=== PATIENT | male | born 1960 | race Caucasian/White ===

== ENCOUNTER → 2019-06-01 12:19 | Outpatient (CLI) | payer BC, SELFPAY ==
--- NOTE | 2019-06-01 12:45 | US_ITS ---
PROCEDURE: US ABDOMEN COMPLETE CLINICAL INDICATION: adb pain Upper abdominal pain COMPARISON: No exams were available for comparison FINDINGS: PANCREAS: Unremarkable. No obvious mass or abnormal fluid collection. No ductal dilatation LIVER: No focal liver lesions demonstrated. Homogeneous echogenicity. No intrahepatic biliary ductal dilatation evident. There is appropriate direction of blood flow within a non dilated portal vein RIGHT KIDNEY: Unremarkable. Normal size and echogenicity. No hydronephrosis LEFT KIDNEY: Unremarkable. Normal size and echogenicity. No hydronephrosis GALLBLADDER: No gallstones apparent. There is a small amount of gallbladder sludge with mild wall thickening at 3-4 mm without pericholecystic fluid or biliary distention. Common bile duct is normal at 2 mm. AORTA: No evidence of aneurysmal dilatation. SPLEEN: Unremarkable. Normal size and echogenicity ASCITES: None demonstrated. IMPRESSION: Gallbladder sludge with mild gallbladder wall thickening otherwise negative abdominal ultrasound Dictated by: Bebeto Long MD 06/01/2019 16:44 Electronically signed by Bebeto Long MD in [place] 06/01/2019 16:44
[2019-06-01 13:41] LABS: Basophils % 0.2 % (0.1-2.0); Eosinophils % 0.3 % (0.1-12.0); Hematocrit 48.1 % (42.0-52.0); Hemoglobin 15.1 g/dL (14.1-18.0); Lymphocytes # 0.9 K/mm3 (0.7-4.5); Lymphocytes % 8.6 % (10-50); Mean Corpuscular HGB Conc 31.4 g/dL (31.8-35.4); Mean Corpuscular Hemoglobin 29.8 pg (27.0-31.2); Mean Platelet Volume 7.9 fl (7.4-10.4); Monocytes # 0.6 K/mm3 (0.1-1.0); Monocytes % 5.5 % (1.7-9.3); Neutrophils # 8.9 K/mm3 (1.8-7.8); Neutrophils % 85.5 % (37.0-80.0); Platelet Count 271 K/mm3 (142-424); Red Blood Count 5.07 M/mm3 (4.60-6.20); Red Cell Distribution Width 13.1 % (11.5-17.5); White Blood Count 10.4 K/mm3 (4.8-10.8)
[2019-06-01 13:51] LABS: MANUAL DIFFERENTIAL MANUAL DIFFERENTIAL (MANUAL DIFF)
[2019-06-01 16:46] LABS: Lymphocytes % 7 % (10-50); Monocytes % 5 % (2-9); Neutrophils % 88 % (42-76); Platelet Estimate Normal; RBC Morphology Normal; Total Cells Counted 100
[2019-06-01 20:59] LABS: Alanine Aminotransferase 31 U/L (12-78); Alkaline Phosphatase 97 U/L (46-116); Amylase 42 U/L (25-115); Anion Gap 17.2 mEq/L (5-15); Aspartate Amino Transferase 16 U/L (15-37); Bilirubin,Direct 0.3 mg/dL (0.0-0.2); Bilirubin,Indirect 1.7 mg/dL (0.0-0.9); Blood Urea Nitrogen 29 mg/dL (7-18); Carbon Dioxide 26 mmol/L (21.0-32.0); Chloride 103 mmol/L (98-107); Creatinine,Serum 1.19 mg/dL (0.70-1.30); Estimated Glomerular Filt Rate 62 ml/min (>60); GFR (African American) 75 ML/MIN (>60); Glucose 88 mg/dL (74-106); Lipase 74 u/L (73-393); Potassium 4.2 mmoL/L (3.5-5.1); Sodium 142 mmol/L (136-145); Thyroid Stimulating Hormone 0.86 uIU/ml (0.358-3.740); Total Protein,Serum 7.2 gm/dL (6.4-8.2)
== END ==
PROVIDERS: Visit Provider Internal Medicine
DX: K29.60 Other gastritis without bleeding (principal); R06.02 Shortness of breath; R10.9 Unspecified abdominal pain; T39.395A Adverse effect of other nonsteroidal anti-inflammatory drugs [NSAID], initial encounter
CPT/HCPCS: 36415; 76700; 80048; 80076; 82150; 83690; 84439; 84443; 85007; 85025; 86677

== ENCOUNTER 2024-02-05 12:18 | Outpatient (CLI) | payer MEDICARE, SELFPAY ==
[2024-02-05 13:14] LABS: Eosinophils # 0.1 K/mm3 (0.0-0.4); Eosinophils % 1.5 % (0.1-12.0); Hematocrit 44.3 % (42.0-52.0); Hemoglobin 14.1 g/dL (14.1-18.0); Lymphocytes # 1.1 K/mm3 (0.7-4.5); Lymphocytes % 25.2 % (10-50); Mean Corpuscular HGB Conc 31.8 g/dL (31.8-35.4); Mean Corpuscular Volume 97.4 fl (80-94); Mean Platelet Volume 8.2 fl (7.4-10.4); Monocytes # 0.3 K/mm3 (0.1-1.0); Monocytes % 6.4 % (1.7-9.3); Neutrophils # 2.8 K/mm3 (1.8-7.8); Platelet Count 241 K/mm3 (142-424); Red Blood Count 4.55 M/mm3 (4.60-6.20); White Blood Count 4.2 K/mm3 (4.8-10.8)
[2024-02-05 13:28] LABS: Albumin Level 3.9 g/dl (3.5-5.0); Chloride 108 mmol/L (98-107); Potassium 4.2 mmoL/L (3.5-5.1); Sodium 141 mmol/L (136-145)
[2024-02-05 13:30] LABS: Bilirubin,Unconjugated 0.8 mg/dL (0.0-1.1); Blood Urea Nitrogen 36 mg/dl (9-20); Estimated Glomerular Filt Rate 61 ml/min (>60); GFR (African American) 74 ML/MIN (>60)
[2024-02-05 13:31] LABS: Alanine Aminotransferase 49 U/L (12-78); Alkaline Phosphatase 81 U/L (38-126); Anion Gap 9.2 mEq/L (5-15); Aspartate Amino Transferase 41 U/L (17-59); Bilirubin,Direct 0.2 mg/dl (0.0-0.4); Bilirubin,Indirect 0.9 mg/dL (0.0-0.9); Bilirubin,Total 1.1 mg/dl (0.2-1.3); Calcium 9.2 mg/dl (8.4-10.2); Carbon Dioxide 28 mmol/L (22.0-30.0); Cholesterol 129 mg/dl (140-200); Glucose 90 mg/dl (74-100); Magnesium 2.1 mg/dl (1.6-2.3); Total Protein,Serum 6.4 g/dl (6.3-8.2); Triglycerides 55 mg/dl (30-150); VLDL Cholesterol 11 mg/dL (0-40)
[2024-02-05 13:32] LABS: Chol/HDL Ratio 3.1 (1-3.5); HDL Cholesterol 42 mg/dl (40-60)
[2024-02-05 13:43] LABS: Direct LDL Cholesterol 65.42 mg/dL (100-129)
[2024-02-05 13:48] LABS: Free T4 (Free Thyroxine) 0.88 ng/dl (0.78-2.19)
[2024-02-05 13:52] LABS: Hemoglobin A1C 5.5 % (4.0-6.0)
[2024-02-05 14:02] LABS: Thyroid Stimulating Hormone 1.02 uIU/mL (0.465-4.68)
[2024-02-05 15:18] LABS: Prostate Specific Ag Screen 0.7 ng/ml (0.0-4.0)
[2024-02-05 15:53] LABS: Vitamin B12 779 pg/mL (239-931)
[2024-02-05 15:57] LABS: Folate > 20.00 ng/mL
[2024-02-15 19:12] LABS: 1,25 Dihydroxy Vitamin D 55 pg/mL (.); 1,25-Dihydroxy, Vitamin D-2 <10 pg/mL (.); 1,25-Dihydroxy, Vitamin D-3 55 pg/mL (.)
== END 2024-02-05 23:59 | disposition home or self-care (01) ==
LOC: LAB 12:19
PROVIDERS: Visit Provider Internal Medicine
DX: R94.31 Abnormal electrocardiogram [ECG] [EKG] (principal); I10 Essential (primary) hypertension; E78.2 Mixed hyperlipidemia; E66.09 Other obesity due to excess calories; I20.89 Other forms of angina pectoris; R06.00 Dyspnea, unspecified; K21.9 Gastro-esophageal reflux disease without esophagitis; Z12.5 Encounter for screening for malignant neoplasm of prostate; Z68.31 Body mass index [BMI] 31.0-31.9, adult
CPT/HCPCS: 80048; 80061; 80076; 82607; 82652; 82746; 83036; 83735; 84439; 84443; 85025; G0103

== ENCOUNTER 2024-02-12 08:41 | Outpatient (CLI) | payer MEDICARE, SELFPAY ==
[2024-02-12 09:17] VITALS: BP 135/78; PULSE 58; RESP 16; O2SAT 99
[2024-02-12 09:30] VITALS: BP 146/88; PULSE 65; RESP 16; O2SAT 98
[2024-02-12] MEDS: NITROGLYCERIN 0.4MG SL TABLET 0.8 MG SL (09:30)
[2024-02-12 09:33] VITALS: BP 118/69; PULSE 54; RESP 16; O2SAT 97
[2024-02-12 09:36] VITALS: BP 106/65; PULSE 62; RESP 18; O2SAT 98
[2024-02-12] MEDS: METOPROLOL TARTRATE 5MG/5ML VIAL *IVABRADINE+METOPROLOL REGIMINE 5 MG IV (09:36)
[2024-02-12 09:46] VITALS: BP 104/65; PULSE 56; RESP 18; O2SAT 96
[2024-02-12] MEDS: 0.9 % SODIUM CHLORIDE 50 ML VIAL IV (09:57)
[2024-02-12] MEDS: SODIUM CHLORIDE 0.9% 10ML SYR (RAD ONLY) 10 ML IV (09:57)
[2024-02-12] MEDS: IOPAMIDOL-370 (76%);100ML BOTTLE 85 ML IV (09:58)
== END 2024-02-12 09:50 | disposition home or self-care (01) ==
PROVIDERS: PCP Internal Medicine; Visit Provider Internal Medicine
DX: I20.89 Other forms of angina pectoris (principal); R06.00 Dyspnea, unspecified; Z82.49 Family history of ischemic heart disease and other diseases of the circulatory system
CPT/HCPCS: 75574; Q9967

== ENCOUNTER 2024-03-02 11:25 | Outpatient (CLI) | payer MEDICARE, SELFPAY ==
--- NOTE | 2024-03-02 | CA_ITS ---
APPROVED REPORT Exam: Exercise Treadmill Technologist: Alina Hernandez Ht: 5 ft 7 in Wt: 204 lbs BSA: 2.04 m2 HR: 57 bpm BP: 140/87 mmHg Indications: Shortness of Breath Medical History Medications: Omeprazole,,,,, Aspirin,,,,, Atorvastatin,,,,, Naproxen,,,,, Centrum Silver,,,,, Lisinopril HCTZ,,,,, TAdalafil,,,,, Stress Test Details Test: Esvin HR Resting HR: 56 bpm Max Heart Rate (APMHR): 155 bpm Max HR Achieved: 147 bpm Target HR (85% APMHR): 132 bpm % of APMHR: 95 Recovery HR: 83 bpm HR response to stress: Normal HR response to stress BP Resting BP: 140.0/87.0 mmHg Max BP: 173.0/85.0 mmHg Recovery BP: 131.0/80.0 mmHg BP response to stress: Normal blood pressure response to stress. ECG Resting ECG: Sinus bradycardia, PRWP anteriorly, NSSTTW abnormalities inferiorly. Stress EC mm upsloping ST depression Arrhythmia: None Clinical Exercise duration: 09:31 min Highest Stage Achieved: Exercise capacity: 10.1 METs Overall Exercise Capacity for Age: Average Stress ECG Conclusion Patient walked 9:31 on Esvin Protocol. Test stopped due to dyspnea. Symptoms: No chest pain Arrhythmias/Ectopy: None ST-T Changes: [address] depression Conclusion: Average exercise capacity. Non-diagnostic stress due to baseline EKG abnormalities. No chest pain. Myoview images reported separately. Test Summary REST . . . . . . . Sitting REST . . . . . . . Standing REST 20:06 0.0 1.2 56 . 140/ 87 . . Stage 1 01:00 10.0 1.7 83 . . . . Stage 1 02:00 10.0 1.7 87 . . . . Stage 1 03:00 10.0 1.7 91 . 138/ 78 . . Stage 2 01:00 12.0 2.5 102 . . . . Stage 2 02:00 12.0 2.5 106 . . . . Stage 2 03:00 12.0 2.5 109 . 148/ 76 . . Stage 3 01:00 14.0 3.4 120 . . . . Stage 3 02:00 14.0 3.4 128 . . . . Stage 3 . . . . . . . Myoview Injected Stage 3 03:00 14.0 3.4 136 . 154/ 82 . . Stage 4 00:31 16.0 4.2 145 . . . Stop exercise at 09:31 RECOVERY 01:00 0.0 0.0 128 . 170/ 84 . . RECOVERY 02:00 0.0 0.0 108 . 170/ 84 . . RECOVERY 03:00 0.0 0.0 96 . 173/ 85 . . RECOVERY 04:00 0.0 0.0 89 . 173/ 85 . . RECOVERY 05:00 0.0 0.0 83 . 173/ 85 . . RECOVERY 05:46 0.0 0.0 82 . 131/ 80 . . Electronically signed by : Makenna Mcpherson MD 03/03/2024 11:42:56
--- NOTE | 2024-03-02 11:26 | NM_ITS ---
APPROVED REPORT Exam: Nuclear Stress Test Indication: Chest pain, SOB, HTN, High cholesterol, Family history Patient Location: Outpatient Stress Tech: Alina Hernandez [place] Tech:Mabel Alvarado, ARRT, RT (R)(N) Ht: 5 ft 7 in Wt: 199 lbs HR: 56 bpm BP: 140/87 mmHg BSA: 2.02 m2 TID: 0.79 BMI: 31.1 History: Chest pain, SOB, HTN, High cholesterol, Family history Procedure: Patient exercised on Esvin protocol 9:31 minutes and sec, resting heart rate 56 bpm, resting blood pressure 140/87 mmHg, with exercise maximum heart rate achived was 147 bpm which is 95 % of the maximum predicted heart rate and blood pressure was 173/85 mmHg. Test was stopped due to SOB. Patient denied any complaint of chest pain. Patient has average exercise capacity, achieved 10.1 METs of workload on treadmill, the blood pressure response to exercise was normal. Cardiac Stress and Resting SPECT Images: Cardiac Stress and Resting SPECT images were obtained using technetium 99m Myoview 31.2 mCi stress and 10.48 mCi at rest. Resting and stress imaging in supine and prone positions demonstrate a medium-sized, mild, reversible perfusion defect in the basal to mid inferior LV wall. Gated imaging demonstrates normal global and regional LV systolic function. LVEF is calculated at 63%. Conclusion: Medium-sized, mild, reversible perfusion defect in the basal to mid inferior LV wall. Findings are suggestive of reversible ischemia. Gated imaging demonstrates normal global and regional LV systolic function. LVEF is calculated at 63%. Electronically signed by : Makenna Mcpherson MD 03/03/2024 11:47:01
[2024-03-02] MEDS: ISOTOPE MYOVIEW (PER STUDY) 1 DOSE IV (13:15)
[2024-03-02] MEDS: SODIUM CHLORIDE 0.9% 10ML SYR (RAD ONLY) 10 ML IV ×2 (13:15)
== END 2024-03-02 23:59 | disposition home or self-care (01) ==
LOC: RAD 11:25
PROVIDERS: PCP Internal Medicine; Visit Provider Nurse Practitioner Family
DX: R06.00 Dyspnea, unspecified (principal)
CPT/HCPCS: 78452; 93017; 93018; A9502

== ENCOUNTER 2024-03-30 10:17 | Day surgery (SDC) | payer MEDICARE, SELFPAY ==
[2024-03-30] VITALS (12 sets, daily range): BP systolic 129–179; BP diastolic 79–103; PULSE 55–80; RESP 18–20; O2SAT 96–100; BMI 32.1
--- NOTE | 2024-03-30 07:05 | IR_ITS ---
APPROVED REPORT Patient Location: Outpatient PROCEDURES Left heart catheterization Left ventriculogram Selective coronary angiogram Drug-eluting stent deployment to the ostial proximal posterior descending artery off the dominant right coronary Drug-eluting stent deployment to the mid LAD INDICATION Coronary artery disease, Abnormal Myoview, Angina pectoris Informed consent was obtained prior to the procedure. COMPLICATIONS none Estimated Blood Loss: less than 10ml TECHNIQUE One percent lidocaine used to anesthetize the right anterior aspect of the wrist. The right radial artery was accessed via the Seldinger technique. A 6 Italian sheath was placed in the right radial artery. 2.5 mg of Verapamil, 800 mcg of nitroglycerin, 1mg Lidocaine and 5000 U Heparin were given through the arterial sheath. The papa catheter was also used to perform left heart catheterization, left ventriculogram and selective coronary angiogram. At the end of the diagnostic angiogram therapeutic heparin was administered giving a therapeutic ACT and the guide catheter was placed in the right coronary artery followed by Choice PT extra-support wire placed distally into the posterior descending artery. A 2.75 x 12 mm Jairo frontier stent was deployed at 16 july reducing severe 90% stenosis to 0%. VALENTINA-3 flow was present before and after the procedure. At the end the procedure the apparatus was removed from the right coronary artery and the guide catheters placed in the left main artery followed by a choice floppy wire placed into the mid LAD. A 3.5 x 22 mm Berry frontier stent was deployed at 12 july reducing the stenosis to 0%. VALENTINA-3 flow was present before and after the procedure. After achieving excellent angiographic results the apparatus was removed the sheath was removed and hemostasis was achieved using TR banding patient was transferred to the postop putting in stable condition ANGIOGRAPHIC RESULTS The left main artery Normal The left anterior descending artery Has proximal 10 and 20% stenoses. There is a mid vessel concentric 70% stenosis followed by poststenotic dilatation. There is an additional 40% stenosis along a tortuous bend with an additional 30% stenosis along a tortuous bend. The LAD is large and wraps the apex The circumflex artery Is nondominant. Gives rise to a small to medium sized first obtuse marginal artery which has an ostial 40 to 50% stenosis. The vessel is 1.75 mm in diameter. A 2 mm second obtuse marginal artery has proximal 30% stenoses The right coronary artery Is a large dominant vessel and has proximal 30% stenoses along tortuous bends with an additional mid vessel 30% stenosis distally. A large posterior descending artery has an ostial proximal concentric 90% stenosis The OCHOA ventriculogram reveals Normal 65% The left ventricular end-diastolic pressure 10 mmHg IMPRESSION Severe two-vessel coronary disease as described above Successful stenting of the large posterior descending artery severe disease reduced to 0% with 1 drug-eluting stent Successful stenting of the mid LAD severe disease reduced to 0% with 1 drug-eluting stent Diffuse moderate disease as described above Normal ejection fraction Normal LVEDP PLAN 1. Effient 10 mg daily plus aspirin 81 mg daily 2. LDL less than 55 to achieve that high intensity statin 3. Avoidance of tobacco products 4. Risk factor modification 5. Cardiac rehabilitation Electronically signed by : Jorge L Pichardo MD 03/30/2024 13:29:49
[2024-03-30 11:04] LABS: Basophils # 0.1 K/mm3 (0-0.2); Eosinophils # 0.1 K/mm3 (0.0-0.4); Hematocrit 43.3 % (42.0-52.0); Lymphocytes # 1.5 K/mm3 (0.7-4.5); Lymphocytes % 24.3 % (10-50); Mean Corpuscular HGB Conc 34.6 g/dL (31.8-35.4); Mean Corpuscular Hemoglobin 31.7 pg (27.0-31.2); Mean Corpuscular Volume 91.5 fl (80-94); Mean Platelet Volume 7.3 fl (7.4-10.4); Monocytes # 0.5 K/mm3 (0.1-1.0); Monocytes % 8.7 % (1.7-9.3); Neutrophils % 65.1 % (37.0-80.0); Platelet Count 262 K/mm3 (142-424); Red Blood Count 4.73 M/mm3 (4.60-6.20); Red Cell Distribution Width 13.8 % (11.5-17.5); White Blood Count 6.1 K/mm3 (4.8-10.8)
[2024-03-30 11:05] LABS: Chloride 100 mmol/L (98-107); Sodium 136 mmol/L (136-145)
[2024-03-30 11:06] LABS: Potassium 3.4 mmoL/L (3.5-5.1)
[2024-03-30 11:08] LABS: Blood Urea Nitrogen 38 mg/dl (9-20); Creatinine Clearance Estimated 81 mL/min (50-200); Estimated Glomerular Filt Rate 61 ml/min (>60); GFR (African American) 74 ML/MIN (>60)
[2024-03-30 11:09] LABS: Anion Gap 6.4 mEq/L (5-15); Calcium 9.6 mg/dl (8.4-10.2); Carbon Dioxide 33 mmol/L (22.0-30.0); Glucose 88 mg/dl (74-100)
[2024-03-30] MEDS: LIDOCAINE 1% 10ML MDV 20 ML IJ (12:51)
[2024-03-30] MEDS: HEPARIN 1,000 UNITS/500ML NS (CATH LAB) 3000 UNIT IV (12:51)
[2024-03-30] MEDS: HEPARIN 1,000 UNITS/ML 10ML VIAL (CATH LAB) 10000 UNIT IV ×2 (12:51→13:09)
[2024-03-30] MEDS: 0.9 % SODIUM CHLORIDE 500 ML 25 ML IV (12:52)
[2024-03-30] MEDS: VERAPAMIL 2.5MG/ML 2ML VIAL 2.5 MG IV (12:52)
[2024-03-30] MEDS: NITROGLYCERIN 800MCG/8ML SYR (CATH LAB) 800 MCG IA (12:52)
[2024-03-30] MEDS: diphenhydrAMINE 50MG/ML VIAL 50 MG IV (12:53)
[2024-03-30] MEDS: FENTANYL 100MCG/2ML VIAL 50 MCG IV (13:04)
[2024-03-30] MEDS: MIDAZOLAM HCL 1MG/1ML 5ML VIAL 1 MG IV (13:04)
[2024-03-30] MEDS: PRASUGREL 10MG TAB 60 MG PO (13:23)
[2024-03-30] MEDS: NITROGLYCERIN SPRAY 0.4MG/SPRAY 4.9GM 0.4 MG TL (15:30)
[2024-03-30] MEDS: IOPAMIDOL-370 (76%);100ML BOTTLE 120 ML IV (15:44)
[2024-03-31 09:30] LABS: CATHL Activated Clotting Time 257 SEC (74-125)
== END 2024-03-30 16:25 | disposition home or self-care (01) ==
PROVIDERS: PCP Internal Medicine; Visit Provider Internal Medicine
DX: R93.1 Abnormal findings on diagnostic imaging of heart and coronary circulation (principal); Z79.899 Other long term (current) drug therapy; I25.118 Atherosclerotic heart disease of native coronary artery with other forms of angina pectoris; R06.02 Shortness of breath; Z82.49 Family history of ischemic heart disease and other diseases of the circulatory system; I10 Essential (primary) hypertension; E78.5 Hyperlipidemia, unspecified
CPT/HCPCS: 36415; 80048; 85025; 85347; 92928; 93458; 99152; 99153; C1725; C1769; C1874; C9600; J1200; J1644; J2250; J3010; Q9967

== ENCOUNTER 2024-04-01 12:34 | Outpatient (CLI) | payer MEDICARE, SELFPAY ==
[2024-04-01 12:58] LABS: Basophils # 0.1 K/mm3 (0-0.2); Basophils % 0.8 % (0.1-2.0); Eosinophils # 0.1 K/mm3 (0.0-0.4); Eosinophils % 1.7 % (0.1-12.0); Hematocrit 43.8 % (42.0-52.0); Hemoglobin 15.3 g/dL (14.1-18.0); Lymphocytes # 1.3 K/mm3 (0.7-4.5); Mean Corpuscular HGB Conc 34.9 g/dL (31.8-35.4); Mean Corpuscular Hemoglobin 32.6 pg (27.0-31.2); Mean Corpuscular Volume 93.6 fl (80-94); Mean Platelet Volume 7.3 fl (7.4-10.4); Monocytes # 0.5 K/mm3 (0.1-1.0); Monocytes % 7.6 % (1.7-9.3); Neutrophils # 4.5 K/mm3 (1.8-7.8); Neutrophils % 69.9 % (37.0-80.0); Platelet Count 240 K/mm3 (142-424); Red Blood Count 4.68 M/mm3 (4.60-6.20); Red Cell Distribution Width 13.9 % (11.5-17.5); White Blood Count 6.4 K/mm3 (4.8-10.8)
[2024-04-01 13:11] LABS: Chloride 104 mmol/L (98-107); Sodium 138 mmol/L (136-145)
[2024-04-01 13:14] LABS: Blood Urea Nitrogen 37 mg/dl (9-20); Calcium 9.6 mg/dl (8.4-10.2); Carbon Dioxide 28 mmol/L (22.0-30.0); Estimated Glomerular Filt Rate 67 ml/min (>60); GFR (African American) 81 ML/MIN (>60); Glucose 84 mg/dl (74-100)
== END 2024-04-01 23:59 | disposition home or self-care (01) ==
LOC: LAB 12:36
PROVIDERS: PCP Internal Medicine; Visit Provider Internal Medicine
DX: I25.10 Atherosclerotic heart disease of native coronary artery without angina pectoris (principal)
CPT/HCPCS: 36415; 80048; 85025

== ENCOUNTER 2024-06-10 12:39 | Outpatient (CLI) | payer MEDICARE, SELFPAY ==
[2024-06-10 13:29] LABS: Hematocrit 42.3 % (42.0-52.0); Hemoglobin 14.1 g/dL (14.1-18.0); Mean Corpuscular HGB Conc 33.3 g/dL (31.8-35.4); Mean Corpuscular Hemoglobin 30.3 pg (27.0-31.2); Mean Corpuscular Volume 90.8 fl (80-94); Red Blood Count 4.66 M/mm3 (4.60-6.20); White Blood Count 4.4 K/mm3 (4.8-10.8)
[2024-06-10 13:30] LABS: Basophils # 0.1 K/mm3 (0-0.2); Basophils % 1.1 % (0.1-2.0); Eosinophils # 0.1 K/mm3 (0.0-0.4); Eosinophils % 1.4 % (0.1-12.0); Lymphocytes % 23.6 % (10-50); Mean Platelet Volume 9.9 fl (7.4-10.4); Monocytes # 0.3 K/mm3 (0.1-1.0); Monocytes % 6.9 % (1.7-9.3); Neutrophils # 2.9 K/mm3 (1.8-7.8); Neutrophils % 66.8 % (37.0-80.0); Platelet Count 242 K/mm3 (142-424); Red Cell Distribution Width 12.5 % (11.5-17.5)
[2024-06-10 14:02] LABS: Alanine Aminotransferase 38 U/L (12-78); Alkaline Phosphatase 87 U/L (38-126); Anion Gap 10.1 mEq/L (5-15); Aspartate Amino Transferase 41 U/L (17-59); Bilirubin,Direct 0.2 mg/dl (0.0-0.4); Bilirubin,Indirect 1.1 mg/dL (0.0-0.9); Bilirubin,Total 1.3 mg/dl (0.2-1.3); Bilirubin,Unconjugated 1.1 mg/dL (0.0-1.1); Blood Urea Nitrogen 33 mg/dl (9-20); Calcium 9.4 mg/dl (8.4-10.2); Carbon Dioxide 30 mmol/L (22.0-30.0); Chloride 105 mmol/L (98-107); Cholesterol 127 mg/dl (140-200); Estimated Glomerular Filt Rate 67 ml/min (>60); GFR (African American) 81 ML/MIN (>60); Glucose 89 mg/dl (74-100); HDL Cholesterol 43 mg/dl (40-60); Potassium 4.1 mmoL/L (3.5-5.1); Sodium 141 mmol/L (136-145); Total Protein,Serum 6.3 g/dl (6.3-8.2); Triglycerides 51 mg/dl (30-150); VLDL Cholesterol 10 mg/dL (0-40)
[2024-06-10 14:12] LABS: Free T4 (Free Thyroxine) 1.06 ng/dl (0.78-2.19)
== END 2024-06-10 23:59 | disposition home or self-care (01) ==
LOC: LAB 12:40
PROVIDERS: Physician Assistant; Visit Provider Internal Medicine
DX: E78.2 Mixed hyperlipidemia (principal); I10 Essential (primary) hypertension; E66.09 Other obesity due to excess calories; Z68.30 Body mass index [BMI] 30.0-30.9, adult; R94.31 Abnormal electrocardiogram [ECG] [EKG]
CPT/HCPCS: 80048; 80061; 80076; 83735; 84439; 84443; 85025

== ENCOUNTER 2024-10-07 11:42 | Outpatient (CLI) | payer MEDICARE, SELFPAY ==
[2024-10-07 12:05] LABS: Basophils # 0.1 K/mm3 (0-0.2); Basophils % 1.6 % (0.1-2.0); Eosinophils # 0.1 K/mm3 (0.0-0.4); Eosinophils % 2.1 % (0.1-12.0); Hematocrit 44.1 % (42.0-52.0); Hemoglobin 14.5 g/dL (14.1-18.0); Lymphocytes % 26.8 % (10-50); Mean Corpuscular HGB Conc 32.9 g/dL (31.8-35.4); Mean Corpuscular Hemoglobin 30.3 pg (27.0-31.2); Mean Corpuscular Volume 92.1 fl (80-94); Mean Platelet Volume 9.2 fl (7.4-10.4); Monocytes # 0.4 K/mm3 (0.1-1.0); Monocytes % 9.7 % (1.7-9.3); Neutrophils # 2.3 K/mm3 (1.8-7.8); Neutrophils % 59.8 % (37.0-80.0); Nucleated Red Blood Cells # 0 10^3/uL; Nucleated Red Blood Cells % 0 %; Platelet Count 237 K/mm3 (142-424); Red Blood Count 4.79 M/mm3 (4.60-6.20); Red Cell Distribution Width 13.5 % (11.5-17.5); Red Cell Distribution Width-SD 46.1 fL; White Blood Count 3.8 K/mm3 (4.8-10.8)
[2024-10-07 12:32] LABS: Chloride 104 mmol/L (98-107); Potassium 3.9 mmoL/L (3.5-5.1); Sodium 140 mmol/L (136-145)
[2024-10-07 12:34] LABS: Alanine Aminotransferase 36 U/L (12-78); Anion Gap 9.9 mEq/L (5-15); Aspartate Amino Transferase 37 U/L (17-59); Bilirubin,Unconjugated 1.9 mg/dL (0.0-1.1); Blood Urea Nitrogen 30 mg/dl (9-20); Carbon Dioxide 30 mmol/L (22.0-30.0); Estimated Glomerular Filt Rate 67 ml/min (>60); GFR (African American) 81 ML/MIN (>60)
[2024-10-07 12:35] LABS: Alkaline Phosphatase 82 U/L (38-126); Bilirubin,Indirect 1.9 mg/dL (0.0-0.9); Bilirubin,Total 1.9 mg/dl (0.2-1.3); Calcium 9.1 mg/dl (8.4-10.2); Chol/HDL Ratio 2.1 (1-3.5); Cholesterol 109 mg/dl (140-200); Glucose 93 mg/dl (74-100); HDL Cholesterol 53 mg/dl (40-60); Total Protein,Serum 6.5 g/dl (6.3-8.2); Triglycerides 51 mg/dl (30-150); VLDL Cholesterol 10 mg/dL (0-40)
[2024-10-07 12:46] LABS: Direct LDL Cholesterol 45.11 mg/dL (100-129)
[2024-10-07 12:52] LABS: Free T4 (Free Thyroxine) 1.04 ng/dl (0.78-2.19)
[2024-10-07 13:05] LABS: Thyroid Stimulating Hormone 1.55 uIU/mL (0.465-4.68)
== END 2024-10-07 23:59 | disposition home or self-care (01) ==
LOC: LAB 13:59
PROVIDERS: Visit Provider Nurse Practitioner Family
DX: I25.10 Atherosclerotic heart disease of native coronary artery without angina pectoris (principal); I10 Essential (primary) hypertension; E78.2 Mixed hyperlipidemia; E66.09 Other obesity due to excess calories; Z68.30 Body mass index [BMI] 30.0-30.9, adult
CPT/HCPCS: 36415; 80048; 80061; 80076; 83735; 84439; 84443; 85025

== ENCOUNTER 2024-10-12 11:12 | Outpatient (CLI) | payer MEDICARE, SELFPAY ==
--- NOTE | 2024-10-12 11:15 | CT_ITS ---
FINAL REPORT TECHNIQUE: Pre-and postcontrast axial imaging of the abdomen and pelvis was obtained.This study was performed with techniques to keep radiation doses as low as reasonably achievable, (ALARA). Individualized dose reduction technique using automated exposure control or adjustment of mA and/or kV according to the patient's size were employed. CLINICAL HISTORY: ELEVATED LIVER ENZYMES FINDINGS: The lung bases are clear. Multiple hypodense liver lesions are present. There are more in the left lobe than in the right. These are somewhat difficult to characterize due to small size. Some are likely cysts. The gallbladder is absent. The spleen, adrenal glands, and pancreas are unremarkable. There is no hydronephrosis or solid renal mass. On precontrast imaging, no renal stones are identified. Abdominal GI tract is unremarkable. There is no lymphadenopathy or ascites. The appendix is not visualized. There are no secondary signs of appendicitis. There is no small bowel obstruction. There is a moderate amount of retained stool in the colon. There is diverticulosis with no evidence of diverticulitis. The prostate is enlarged. There is wall thickening of the urinary bladder favored to be related to chronic outlet obstruction. There is no lymphadenopathy or ascites. No acute osseous abnormalities identified. IMPRESSION: Multiple, small hypodense liver lesions. Some are difficult to characterize due to very small size. Some are likely cysts. Liver protocol MRI is recommended. Constipation. Enlarged prostate with findings related to chronic outlet obstruction. Reviewed, Interpreted and Dictated by Alice Quintanilla MD Transcribed by Queta Ramos Authenticated and [facility]
[2024-10-12] MEDS: IOPAMIDOL-370 (76%);100ML BOTTLE 75 ML IV (11:33)
[2024-10-12] MEDS: SODIUM CHLORIDE 0.9% 10ML SYR (RAD ONLY) 10 ML IV (11:33)
== END 2024-10-12 23:59 | disposition home or self-care (01) ==
LOC: RAD 11:13
PROVIDERS: PCP Internal Medicine; Visit Provider Nurse Practitioner Family
DX: R74.8 Abnormal levels of other serum enzymes (principal); R93.1 Abnormal findings on diagnostic imaging of heart and coronary circulation
CPT/HCPCS: 74178; Q9967

== ENCOUNTER 2024-10-21 06:44 | Outpatient (CLI) | payer MEDICARE, SELFPAY ==
--- NOTE | 2024-10-21 07:00 | MR_ITS ---
FINAL REPORT TECHNIQUE: Multiplanar and multisequence MR imaging was performed through the abdomen before and after contrast administration utilizing an MR enterography protocol. Multiplanar MR imaging of the abdomen was obtained with and without contrast. CLINICAL HISTORY: liver lesions. ABNORMAL CT SCAN COMPARISON: CT dated 10/12/2024 FINDINGS: Overall exam is somewhat degraded secondary to respiratory motion. On the T2 weighted images, there are well-circumscribed fluid signal intensity structures in the left lobe of the liver and adjacent to the andrew hepatis. Individual structures measure up to 1.7 cm in greatest dimension. On the pre and postinfusion images, there is no evidence of abnormal enhancement. The spleen, pancreas, adrenals, and kidneys are unremarkable. The gallbladder is surgically absent. IMPRESSION: Multiple well-circumscribed fluid signal intensity structures, particularly in the left lobe of the liver consistent with benign cysts Reviewed, Interpreted and Dictated by Caesar Cruz MD Transcribed by Maida Stewart Authenticated and . [facility]
[2024-10-21] MEDS: SODIUM CHLORIDE 0.9% 10ML SYR (RAD ONLY) 10 ML IV (07:42)
[2024-10-21] MEDS: SODIUM CHLORIDE 0.9% 50ML BAG 20 ML IV (07:42)
[2024-10-21] MEDS: GADOTERIDOL INJ 20ML SYRINGE 18 ML IV (07:42)
== END 2024-10-21 23:59 | disposition home or self-care (01) ==
LOC: RAD 06:45
PROVIDERS: PCP Internal Medicine; Visit Provider Nurse Practitioner Family
DX: K76.9 Liver disease, unspecified (principal); R74.8 Abnormal levels of other serum enzymes
CPT/HCPCS: 74183; A9576

== ENCOUNTER 2024-10-26 09:56 | Day surgery (SDC) | payer MEDICARE, SELFPAY ==
[2024-10-21 17:21] VITALS: BMI 31.0
[2024-10-26] MEDS: LACTATED RINGERS 1000ML 1,000 ML 50 ML IV (10:41)
[2024-10-26 10:43] VITALS: BP 109/66; PULSE 61; RESP 18; TEMP 36.6; O2SAT 98
--- NOTE | 2024-10-26 10:53 | P.PNANES_ITS ---
[facility] Disclaimer: The information contained in this section may have been updated after the patient was seen, as this information can be updated by other users. Medical History History of left heart catheterization Enlarged prostate Liver lesion Elevated liver enzymes Erectile dysfunction Coronary artery disease Abnormal findings on diagnostic imaging of heart and coronary circulation Family history of coronary artery disease in father Dyspnea Atypical angina Family history of colon cancer requiring screening colonoscopy Abnormal electrocardiogram [ECG] [EKG] Obesity HLD (hyperlipidemia) HTN (hypertension) Surgical History History of colonoscopy History of appendectomy Family History Brother Family history of myocardial infarction Mother Family history of COPD (chronic obstructive pulmonary disease) Other Family history of cancer in brother Family history of hyperlipidemia Family history of hypertension Social History Smoking Status: Never smoker alcohol intake: current substance use type: denies use current occupational status: employed and retired Travel in the last 8 weeks?: Inside the [facility] Anesthesia Checklist Patient Identification Patient Identification: Arm Band Structural Data Admitted From: Home Planned Operative Procedure/s: Colonoscopy Consent for Planned Operative Procedure(s) Verified: Yes Verified Documents: Surgical Consent and History and Physical NPO Status Verified Time NPO: 06:00 (finished prep) Additional verifications Anesthesia Reactions: No Hx Blood Transfusions: No Blood Transfusion Reaction: No Airway Assessment Mallampati Score:: Class II C-Spine Mobility Assessed: Yes TMJ Mobility Assessed: Yes Dentition: Good Dentition Neurological Assessment Level of Consciousness: Awake, Alert and Appropriate Anesthesia Plan Anesthesia Risk discussed: Yes Anesthesia Plan: Verified ASA Class: III Anesthesia Type: MAC
--- NOTE | 2024-10-26 11:16 | P.HP_ITS ---
History of Present Illness *Admission Date: 10/26/24 *Reason for visit:: Screening *History of present illness: Mr. Cormier is a 64-year-old gentleman who is here for screening colonoscopy. His last colonoscopy was just over 10 years ago. The examination is deemed medically necessary for screening/surveillance colonoscopy. The patient has been seen, interviewed and examined prior to the procedure by both myself and the anesthesia provider. [facility] Disclaimer: The information contained in this section may have been updated after the patient was seen, as this information can be updated by other users. Medical History (Updated 10/26/24 @ 11:25 by Todd Lewis II, MD) History of left heart catheterization Enlarged prostate Liver lesion Elevated liver enzymes Erectile dysfunction Coronary artery disease Abnormal findings on diagnostic imaging of heart and coronary circulation Family history of coronary artery disease in father Dyspnea Atypical angina Family history of colon cancer requiring screening colonoscopy Abnormal electrocardiogram [ECG] [EKG] Obesity HLD (hyperlipidemia) HTN (hypertension) Surgical History History of colonoscopy History of appendectomy Family History Brother Family history of myocardial infarction Mother Family history of COPD (chronic obstructive pulmonary disease) Other Family history of cancer in brother Family history of hyperlipidemia Family history of hypertension Social History (Updated 10/26/24 @ 10:54 by Laith Wood CRNA) Smoking Status: Never smoker alcohol intake: current substance use type: denies use current occupational status: employed and retired Travel in the last 8 weeks?: Inside the [place] Have you lived/traveled outside US in past 30 days?: No Contact w/someone who lives/traveled outside US past 30 days?: No Exposure to someone with infectious disease in past 14 days?: No Do you have a fever (greater than 100.4 F or 38 C)?: No Have you tested positive for COVID-19?: No Exposed to someone with COVID-19 in past 14 days?: No Do you have a sore throat?: No Do you have a cough?: No Do you have any weakness?: No Do you have any diarrhea?: No Are you experiencing any unusual bleeding?: No Do you have any muscle aches/pain?: No Do you have any abdominal pain?: No Are you experiencing loss of taste or smell?: No Other Medical History Have you received the Flu Vaccine for this season: No Have you received the Pneumonia Vaccine: No Review of Systems Review of Systems Review of systems (narrative): Negative *Cardiovascular Comments: Negative *Gastrointestinal Comments: Negative *Genitourinary Comments: Negative *Musculoskeletal Comments: Negative *Neurologic Comments: Negative Meds Home Medications and Allergies Home Medications ?Medication ?Instructions ?Recorded ?Confirmed ?Type aspirin 81 mg tablet,delayed 81 mg PO DAILY 06/01/19 10/26/24 History release (Mahesh Low Dose Aspirin) [id number] acid 0.4 1 tab PO DAILY 06/01/19 10/26/24 History mg-lycopene 300 mcg-lutein 250 mcg tablet (Centrum Silver) naproxen 250 mg tablet 250 mg PO DAILY 06/01/19 10/26/24 History sodium,potassium,mag sulfates 17.5 See Rx Instructions PO .COMPLEX 10/05/24 10/26/24 Rx gram-3.13 gram-1.6 gram oral soln #354 mL (Suprep Bowel Prep Kit) atorvastatin 80 mg tablet (Lipitor) 80 mg PO HS 90 days #90 tabs 10/07/2411/15 Rx ezetimibe 10 mg tablet (Zetia) 10 mg PO DAILY #90 tabs 10/07/24 10/26/24 Rx lisinopril 20 1 tab PO DAILY #90 tabs 10/07/24 10/26/24 Rx mg-hydrochlorothiazide 12.5 mg tablet omeprazole 20 mg capsule,delayed See Rx Instructions .Route 10/07/24 10/26/24 Rx release .COMPLEX #90 caps prasugrel HCl 10 mg tablet 10 mg PO DAILY 90 days #90 tabs 10/07/24 10/26/24 Rx (Effient) tadalafil 5 mg tablet 5 mg PO DAILY erectile dysfunction 10/21/24 10/26/24 Rx #90 tabs New Prescriptions to Start Prescriptions: Allergies Allergy/AdvReac Type Severity Reaction Status Date / Time No Known Allergies Allergy Verified 10/21/24 12:26 Exam Data for Last 24 hours Vital signs and Labs for Last 24 Hours: Temp Pulse Resp BP Pulse Ox O2 Del Method 97.8 F 61 18 109/66 L 98 Room Air 10/26/24 10:43 10/26/24 10:43 10/26/24 10:43 10/26/24 10:43 10/26/24 10:43 10/26/24 10:43 *Routine HEENT Exam Head: Present normocephalic Eye: Present EOMI and PERRL ENT: Present mucous membranes moist *Routine Neck Exam Neck: Present supple *Routine Respiratory Exam Respiratory: Present CTA bilaterally *Routine Cardiovascular Exam Cardiovascular: Present RRR *Routine Abdominal Exam Abdominal: Present soft and normoactive bowel sounds; Absent tenderness *Routine Rectal Exam Rectal:: deferred *Routine Genitalia Exam Genitalia:: deferred *Routine Extremities Exam Extremities: Absent cyanosis, clubbing or edema *Routine Skin Exam Skin: Present warm; Absent rash *Routine Neurological Exam Neurological: Present alert and oriented X3 Assessment and Plan *Assessment and plan (1) Screening for colon cancer: Status: Acute Category: Medical Code(s): Z12.11 - Encounter for screening for malignant neoplasm of colon Plan A/P: 1. Screening for colon cancer is the preprocedural diagnosis. The patient will be anesthetized/sedated using MAC sedation. The patient has been seen and examined. Cardiac and lung assessment prior to the examination is stable. Proceed with planned screening colonoscopy.
--- NOTE | 2024-10-26 11:25 | P.PCN_ITS ---
[facility] Procedure Note Date: 10/26/24 Time: 11:41 Procedure Note:: Colonoscopy Procedure Report: Colonoscopy Endoscopist: Todd Lewis II, MD Referring physician: Jorge L Pichardo M.D. Date of Procedure: October 26, 2024 Equipment: Olympus 190 variable stiffness pediatric colonoscope Sedation: MAC sedation Indication: Mr. Cormier is a 64-year-old gentleman who is here for screening/surveillance colonoscopy. The patient's last colonoscopy was 10-1/2 years ago and was normal. The patient reports no abdominal pain, weight loss, change in his bowel habits or family history of colon cancer. He will occasionally see a spot of blood on the tissue when wiping. He does report a bowel movement every 2 to 3 days. Procedure: Prior to the procedure, a history and physical exam was performed, and patient's medications and allergies were reviewed. The risks, benefits and alternatives of the sedation and procedure were discussed with the patient. All questions were answered and informed consent was obtained. The patient was brought to the procedure room. Patient identification and proposed procedure were verified by the physician and the nurse. The patient was placed in a left lateral decubitus position and the scope was passed under direct vision. Throughout the procedure, the patient's blood pressure, pulse, and oxygen saturations were monitored continuously. The colonoscopy was accomplished without difficulty. The patient tolerated the procedure well. Findings: On digital rectal examination there was normal rectal tone. There were no external hemorrhoids. The prostate was 2+, smooth, soft, symmetric without nodules. The colonoscope was introduced through the anal canal to the rectum and advanced to the cecum. The ileocecal valve and appendiceal orifice were identified. The scope was advanced a short distance into the ileum which appeared grossly normal. The scope was then withdrawn into the colon. The cecum, ascending and transverse colon and mucosa were grossly normal. There were scattered diverticuli throughout the descending and sigmoid colon (LEFT colon). The rectum itself was normal. Upon retroflexion within the rectum there were grade 2 internal hemorrhoids. The preparation was excellent throughout with [place] Preparation Score of 9. The cecal time was 12 minutes. Impression: 1. Left-sided diverticulosis 2. Grade 2 internal hemorrhoids Plan: The patient will not require surveillance colonoscopy again for 10 years by ACS guidelines. I would encourage psyllium bulking fiber supplementation on a long-term daily maintenance basis.
[2024-10-26 11:42] VITALS: BP 81/51; PULSE 74; RESP 17; TEMP 36.2; O2SAT 91
[2024-10-26 11:52] VITALS: BP 100/51; PULSE 75; RESP 17; O2SAT 95
[2024-10-26 12:02] VITALS: BP 105/62; PULSE 74; RESP 17; O2SAT 97
== END 2024-10-26 12:20 | disposition home or self-care (01) ==
PROVIDERS: Visit Provider Internal Medicine Gastroenterology
PROC: 0DJD8ZZ Inspection of Lower Intestinal Tract, Via Natural or Artificial Opening Endoscopic (ICD-10-PCS; CPT 45378; principal; 2024-10-26 11:30)
DX: Z12.11 Encounter for screening for malignant neoplasm of colon (principal); K57.30 Diverticulosis of large intestine without perforation or abscess without bleeding; K64.1 Second degree hemorrhoids; I10 Essential (primary) hypertension; E78.5 Hyperlipidemia, unspecified; I25.10 Atherosclerotic heart disease of native coronary artery without angina pectoris; N40.0 Benign prostatic hyperplasia without lower urinary tract symptoms; N52.9 Male erectile dysfunction, unspecified; Z79.82 Long term (current) use of aspirin
CPT/HCPCS: 45378; J2003; J2704; J7120